=== PATIENT | female | born 1955 | race Caucasian/White ===

== ENCOUNTER → 2017-05-10 | Outpatient (CLI) | payer MEDICARE ==
[2017-05-10 15:18] LABS: Blood Urea Nitrogen 14 mg/dL (7-17); Non-African American GFR(MDRD) >60 (>60 ml/min/1.73 sqM)
--- NOTE | 2017-05-11 07:33 | CT ---
EXAMINATION TYPE: CT abdomen pelvis w con DATE OF EXAM: 05/10/2017 HISTORY: Generalized abdominal pain with gurgling and constipation. CT DLP: 722.00mGycm Automated Exposure Control for Dose Reduction was Utilized. CONTRAST: CT scan of the abdomen and pelvis is performed with IV Contrast, patient injected with 100 mL of Omni paque 300. COMPARISON: None. FINDINGS: Patient has very little intra-abdominal fat making evaluation suboptimal. LUNG BASES: There is minimal linear scarring and/or atelectasis in both bases. LIVER/GB: Gallbladder is contracted in appearance and thus limited in evaluation. PANCREAS: No significant abnormality is seen. SPLEEN: No significant abnormality is seen. ADRENALS: No significant abnormality is seen. KIDNEYS: No significant abnormality is seen. BOWEL: Oral contrast reaches proximal transverse colon. There is no suspicious small or large bowel d ilatation seen. The amount of fecal material is slightly prominent in the transverse colon. UTERUS/ADNEXA: Slightly prominent draining ovarian veins are seen bilaterally near axial image 58 and coronal image 46, a pelvic congestion syndrome cannot be excluded in the appropriate clinical settin g. LYMPH NODES: No greater than 1cm abdominal or pelvic lymph nodes are appreciated. OSSEOUS STRUCTURES: No significant abnormality is seen. OTHER: There is fairly moderate calcified atherosclerotic change of aorta extending into branch vesse ls IMPRESSION: No bowel obstruction is seen. Perhaps mild mid colonic fecal stasis.
== END | disposition home or self-care (01) ==
LOC: RADCTMAIN 14:42
PROVIDERS: ATTEND Internal Medicine
DX: R10.84 Generalized abdominal pain (principal)
CPT/HCPCS: 82565; 84520; 74177; 36415; Q9967

== ENCOUNTER 2018-02-09 20:21 | Emergency (ER) | payer MEDICARE ==
--- NOTE | 2018-02-09 20:33 | ED ---
General Adult HPI - General Chief complaint: Extremity Problem,Nontraumatic Stated complaint: FEVER Time Seen by Provider: 02/09/18 20:32 Source: patient Mode of arrival: ambulatory Limitations: no limitations - History of Present Illness Initial comments: Patient presents with fatigue, rash on legs. Patient states she had the flu, states it lasts approximately 13 days, saw her primary care physician after that time, was told she may have sinusitis, started on Levaquin. Patient states shortly after completing Levaquin she started developing small red spots on her feet and shins. States the rash has been unchanged for the past 3 days. Patient states she still feels fatigued, states she had a fever of 101 earlier today, took Tylenol at 4:30 PM today. Patient afebrile on arrival. Patient states she's had generalized body aches, mild generalized headache. Denies nausea, vomiting, abdominal pain, urinary symptoms, constipation, diarrhea, confusion, vision changes. Patient has ALLERGIES to other antibiotics including penicillin, sulfa. She states she has a history of fibromyalgia, osteoporosis. States she frequently has generalized body aches, fatigue, pains. - Related Data Home Medications Medication Instructions Recorded Confirmed Enalapril [Vasotec] 5 mg PO DAILY 02/07/15 02/09/18 Cholecalciferol (Vitamin D3) 2,000 unit PO DAILY 02/09/18 02/09/18 [Vitamin D3] DULoxetine HCL [Cymbalta] 20 mg PO Q3D 02/09/18 02/09/18 Insulin Aspart (For Pump) [NovoLOG 0.01 unit SQ-PUMP CONTINUOUS 02/09/18 (For Pump)] Meclizine HCl 25 mg PO TID PRN 02/09/18 02/09/18 Allergies Allergy/AdvReac Type Severity Reaction Status Date / Time levofloxacin [From Levaquin] Allergy Rash/Hives Verified 02/09/18 21:15 Penicillins Allergy Unknown Verified 02/09/18 20:35 Sulfa (Sulfonamide Allergy Swelling Verified 02/09/18 20:35 Antibiotics) diphenhydramine HCl AdvReac Itching Verified 02/09/18 20:35 [From Benadryl] morphine AdvReac Itching Verified 02/09/18 20:35 Review of Systems ROS Statement: Those systems with pertinent positive or pertinent negative responses have been documented in the HPI. ROS Other: All systems not noted in ROS Statement are negative. Constitutional: Reports: fever, other (Fatigue). Denies: chills, weakness, weight change, night sweats Eyes: Denies: eye pain, eye discharge, vision change ENT: Reports: other (Denies rhinorrhea.). Denies: ear pain, throat pain, dental pain, hearing loss, congestion Respiratory: Denies: cough, dyspnea, wheezes Cardiovascular: Denies: chest pain, palpitations Endocrine: Reports: fatigue Gastrointestinal: Denies: abdominal pain, nausea, vomiting, diarrhea, constipation Genitourinary: Denies: urgency, dysuria, frequency, hematuria Musculoskeletal: Reports: arthralgia, myalgia. Denies: back pain, joint swelling Skin: Reports: rash Neurological: Reports: headache (Mild, generalized, intermittent.). Denies: weakness, numbness, confusion Past Medical History Past Medical History: Diabetes Mellitus, Fibromyalgia, Hypertension Additional Past Medical History / Comment(s): MS. osteoporosis. History of Any Multi-Drug Resistant Organisms: None Reported Past Surgical History: Appendectomy, Breast Surgery, Section Additional Past Surgical History / Comment(s): left rotator cuff. colonoscopy. Past Psychological History: Anxiety Smoking Status: Former smoker Past Alcohol Use History: None Reported, Occasional Past Drug Use History: None Reported General Exam - General Exam Comments Initial Comments: Sitting up in bed alert. Conversing normally. Calm, pleasant. Well-groomed well-dressed. Does not appear in pain. Not ill appearing. Well-appearing. Limitations: no limitations General appearance: alert, in no apparent distress Head exam: Present: atraumatic, normocephalic Eye exam: Present: normal appearance, PERRL, EOMI. Absent: scleral icterus, conjunctival injection, periorbital swelling, periorbital tenderness ENT exam: Present: normal exam, normal oropharynx, mucous membranes moist, normal external ear exam, other (Oropharynx clear, no vesicles, erythema, petechiae of the oropharynx or buccal mucosa appreciated.) Neck exam: Present: normal inspection, full ROM, other (Final range of motion, no lymphadenopathy, no meningismus.). Absent: tenderness, meningismus, lymphadenopathy Respiratory exam: Present: normal lung sounds bilaterally. Absent: respiratory distress, wheezes, rales Cardiovascular Exam: Present: regular rate, normal rhythm GI/Abdominal exam: Present: soft. Absent: distended, tenderness, guarding, rebound Extremities exam: Present: full ROM, normal capillary refill, other (No edema appreciated. No Tenderness appreciated.). Absent: tenderness, pedal edema, joint swelling Back exam: Present: normal inspection Neurological exam: Present: alert, oriented X3, CN II-XII intact, normal gait, other (Alert and oriented 4. GCS 15. Conversing normally. No focal neuro deficits on exam.) Psychiatric exam: Present: normal affect, normal mood Skin exam: Present: warm, dry, intact, rash, petechiae, other (Mild amount of red petechiae anterior feet and shins bilaterally.) Course Vital Signs 02/09/18 02/09/18 02/10/18 20:24 22:51 00:29 Temperature 98.6 F 99.6 F Pulse Rate 77 89 91 Respiratory 16 18 18 Rate Blood Pressure 190/80 191/84 197/82 O2 Sat by Pulse 100 98 94 L Oximetry Medical Decision Making - Medical Decision Making Blood pressure mildly elevated, otherwise vital signs all within normal limits, patient is afebrile, 4.5 hr since pt's last antipyretic. Patient well- appearing on exam. Blood cultures drawn given patient's reported fevers. White blood cell count within normal range CT head and sinuses are normal. Grayson negative. LFTs mildly elevated, likely secondary to viral syndrome. She states she had a confirmed test positive for influenza recently. Supportive care discussed. 00:57 US negative Patient well-appearing on exam. Reexamined, remains afebrile in the ER, repeat temperature 97.1, patient was not given any antipyretics in the ER. Patient's symptoms likely secondary to viral syndrome, symptoms may be exacerbated by pt' s fibromyalgia, at this time no signs of severe infection requiring antibiotics , admission to the hospital, or further workup. Headache resolved at this time. Discussed with pt doubtful meningitis at this time, she agrees with no LP at this time, states she has had that before and doesn't want it. He agrees to monitor symptoms closely at home. Use Motrin and Tylenol for fevers. Return to ER if new or worsening symptoms including uncontrolled fevers, headache, confusion, neck pain, increased rash. At this time and do not feel rash is consistent with that of meningococcemia. Rash may be a drug reaction, rash has not worsened in the past 3 days, patient to monitor closely. Follow primary care physician one to 2 days for reevaluation of symptoms and rash. Informed that this may be related to her recent influenza and continuation of symptoms, may also be early development of a new process, needs to be watched closely by her primary care physician. At this time cause of her rash is unknown. - Lab Data Result diagrams: 02/09/18 21:15 02/09/18 21:15 Lab Results 02/09/18 02/09/18 02/09/18 Range/Units 21:15 21:15 21:15 WBC 5.8 (3.8-10.6) k/uL RBC 4.33 (3.80-5.40) m/uL Hgb 13.0 (11.4-16.0) gm/dL Hct 38.8 (34.0-46.0) % MCV 89.5 (80.0-100.0) fL MCH 30.0 (25.0-35.0) pg MCHC 33.5 (31.0-37.0) g/dL RDW 13.3 (11.5-15.5) % Plt Count 244 (150-450) k/uL Neutrophils % (Manual) 16 % Lymphocytes % (Manual) 70 % Monocytes % (Manual) 11 % Eosinophils % (Manual) 2 % Basophils % (Manual) 1 % Neutrophils # (Manual) 0.93 L (1.3-7.7) k/uL Lymphocytes # (Manual) 4.06 (1.0-4.8) k/uL Monocytes # (Manual) 0.64 (0-1.0) k/uL Eosinophils # (Manual) 0.12 (0-0.7) k/uL Basophils # (Manual) 0.06 (0-0.2) k/uL Nucleated RBCs 0 (0-0) /100 WBC Manual Slide Review Performed RBC Morphology Normal PT (9.0-12.0) sec INR (<1.2) APTT (22.0-30.0) sec Sodium 140 (137-145) mmol/L Potassium 3.7 (3.5-5.1) mmol/L Chloride 98 (98-107) mmol/L Carbon Dioxide 29 (22-30) mmol/L Anion Gap 13 mmol/L BUN 8 (7-17) mg/dL Creatinine 0.50 L (0.52-1.04) mg/dL Est GFR (CKD-EPI)AfAm >90 (>60 ml/min/1.73 sqM) Est GFR (CKD-EPI)NonAf >90 (>60 ml/min/1.73 sqM) Glucose 93 (74-99) mg/dL Plasma Lactic Acid Bert 0.7 (0.7-2.0) mmol/L Calcium 9.2 (8.4-10.2) mg/dL Magnesium 2.1 (1.6-2.3) mg/dL Total Bilirubin 0.4 (0.2-1.3) mg/dL AST 124 H (14-36) U/L ALT 122 H (9-52) U/L Alkaline Phosphatase 149 H (38-126) U/L Total Protein 7.8 (6.3-8.2) g/dL Albumin 4.2 (3.5-5.0) g/dL Urine Color Urine Appearance (Clear) Urine pH (5.0-8.0) Ur Specific Wilmot (1.001-1.035) Urine Protein (Negative) Urine Glucose (UA) (Negative) Urine Ketones (Negative) Urine Blood (Negative) Urine Nitrite (Negative) Urine Bilirubin (Negative) Urine Urobilinogen (<2.0) mg/dL Ur Leukocyte Esterase (Negative) Heterophile Antibody (Negative) 02/09/18 02/09/18 02/09/18 Range/Units 21:15 21:15 21:15 WBC (3.8-10.6) k/uL RBC (3.80-5.40) m/uL Hgb (11.4-16.0) gm/dL Hct (34.0-46.0) % MCV (80.0-100.0) fL MCH (25.0-35.0) pg MCHC (31.0-37.0) g/dL RDW (11.5-15.5) % Plt Count (150-450) k/uL Neutrophils % (Manual) % Lymphocytes % (Manual) % Monocytes % (Manual) % Eosinophils % (Manual) % Basophils % (Manual) % Neutrophils # (Manual) (1.3-7.7) k/uL Lymphocytes # (Manual) (1.0-4.8) k/uL Monocytes # (Manual) (0-1.0) k/uL Eosinophils # (Manual) (0-0.7) k/uL Basophils # (Manual) (0-0.2) k/uL Nucleated RBCs (0-0) /100 WBC Manual Slide Review RBC Morphology PT 10.4 (9.0-12.0) sec INR 1.1 (<1.2) APTT 26.0 (22.0-30.0) sec Sodium (137-145) mmol/L Potassium (3.5-5.1) mmol/L Chloride (98-107) mmol/L Carbon Dioxide (22-30) mmol/L Anion Gap mmol/L BUN (7-17) mg/dL Creatinine (0.52-1.04) mg/dL Est GFR (CKD-EPI)AfAm (>60 ml/min/1.73 sqM) Est GFR (CKD-EPI)NonAf (>60 ml/min/1.73 sqM) Glucose (74-99) mg/dL Plasma Lactic Acid Bert (0.7-2.0) mmol/L Calcium (8.4-10.2) mg/dL Magnesium (1.6-2.3) mg/dL Total Bilirubin (0.2-1.3) mg/dL AST (14-36) U/L ALT (9-52) U/L Alkaline Phosphatase (38-126) U/L Total Protein (6.3-8.2) g/dL Albumin (3.5-5.0) g/dL Urine Color Light Yellow Urine Appearance Clear (Clear) Urine pH 7.0 (5.0-8.0) Ur Specific Wilmot 1.002 (1.001-1.035) Urine Protein Negative (Negative) Urine Glucose (UA) Negative (Negative) Urine Ketones Negative (Negative) Urine Blood Negative (Negative) Urine Nitrite Negative (Negative) Urine Bilirubin Negative (Negative) Urine Urobilinogen <2.0 (<2.0) mg/dL Ur Leukocyte Esterase Negative (Negative) Heterophile Antibody Negative (Negative) Disposition Clinical Impression: Fatigue, Rash and nonspecific skin eruption Disposition: HOME SELF-CARE Condition: Good Instructions: Acute Rash (ED), Fatigue (ED) Additional Instructions: Follow-up with your primary care physician one to 2 days for reevaluation. Return to ER for new or worsening symptoms. Is patient prescribed a controlled substance at d/c from ED?: No Referrals: Ghassan Mccabe MD [Primary Care Provider] - 1-2 days
[2018-02-09] MEDS: SODIUM CHLORIDE 0.9% 500 ML IV SCH (21:23)
[2018-02-09 21:32] LABS: Appearance,Urine Clear (Clear); Bilirubin,Urine Negative (Negative); Blood,Urine Negative (Negative); Color,Urine Light Yellow; Glucose,Urine (UA) Negative (Negative); HCT 38.8 % (34.0-46.0); Ketones,Urine Negative (Negative); Leukocyte Esterase,Urine Negative (Negative); MCHC 33.5 g/dL (31.0-37.0); MCV 89.5 fL (80.0-100.0); Mean Platelet Volume 7.4; Nitrite,Urine Negative (Negative); Platelet Count 244 k/uL (150-450); Protein,Urine Negative (Negative); RBC 4.33 m/uL (3.80-5.40); RDW 13.3 % (11.5-15.5); Specific Gravity,Urine 1.002 (1.001-1.035); Urobilinogen,Urine <2.0 mg/dL (<2.0); WBC 5.8 k/uL (3.8-10.6)
[2018-02-09 21:40] LABS: INR 1.1 (<1.2); Prothrombin Time 10.4 sec (9.0-12.0)
[2018-02-09 21:41] LABS: ALT 122 U/L (9-52); AST 124 U/L (14-36); Albumin 4.2 g/dL (3.5-5.0); Alkaline Phosphatase 149 U/L (38-126); Anion Gap 13 mmol/L; Blood Urea Nitrogen 8 mg/dL (7-17); Calcium 9.2 mg/dL (8.4-10.2); Carbon Dioxide 29 mmol/L (22-30); Chloride 98 mmol/L (98-107); Glucose 93 mg/dL (74-99); Magnesium 2.1 mg/dL (1.6-2.3); Potassium 3.7 mmol/L (3.5-5.1); Sodium 140 mmol/L (137-145); Total Bilirubin 0.4 mg/dL (0.2-1.3); Total Protein 7.8 g/dL (6.3-8.2)
[2018-02-09 22:17] LABS: Basophils # (M) 0.06 k/uL (0-0.2); Eosinophils # (M) 0.12 k/uL (0-0.7); Lymphocytes # (M) 4.06 k/uL (1.0-4.8); Monocytes # (M) 0.64 k/uL (0-1.0); Neutrophils # (M) 0.93 k/uL (1.3-7.7); Neutrophils % (M) 16 %; Nucleated Red Blood Cells 0 /100 WBC (0-0); Total Cells Counted 100
--- NOTE | 2018-02-09 22:43 | CT ---
EXAM: CT Head Without Intravenous Contrast CLINICAL HISTORY: Reason: Pain TECHNIQUE: Axial computed tomography images of the head/brain without intravenous contrast. CTDI is 60.3 mGy and DLP is 967.9 mGy-cm. This CT exam was performed using one or more of the following dose reduction techniques: automated exposure control, adjustment of the mA and/or kV according to patient size, and/or use of iterative reconstruction technique. COMPARISON: No relevant prior studies available. FINDINGS: Brain: Unremarkable. No hemorrhage. No significant white matter disease. No edema. Ventricles: Unremarkable. No ventriculomegaly. Bones/joints: Unremarkable. No acute fracture. Soft tissues: Unremarkable. Sinuses: Unremarkable as visualized. No acute sinusitis. Mastoid air cells: Unremarkable as visualized. No mastoid effusion. IMPRESSION: Normal head/brain CT.
--- NOTE | 2018-02-09 22:45 | CT ---
EXAM: CT Maxillofacial Sinuses Without Intravenous Contrast CLINICAL HISTORY: Reason: Pain TECHNIQUE: Computed tomography images of the maxillofacial sinuses without intravenous contrast. CTDI is 30.6 mGy and DLP is 526.4 mGy-cm. This CT exam was performed using one or more of the following dose reduction techniques: automated exposure control, adjustment of the mA and/or kV according to patient size, and/or use of iterative reconstruction technique. COMPARISON: No relevant prior studies available. FINDINGS: Maxillary sinuses: Unremarkable. No air-fluid levels. Sphenoid sinuses: Unremarkable. No air-fluid levels. Frontal sinuses: Unremarkable. No air-fluid levels. Ethmoid air cells: Unremarkable. No air-fluid levels. Nasal cavity/septum: No acute findings. Bones/joints: No acute fracture. Soft tissues: Unremarkable. IMPRESSION: Normal sinus CT.
[2018-02-09 22:52] VITALS: RESP 18
[2018-02-10 00:30] VITALS: BP 197/82; PULSE 91; TEMP 99.6
--- NOTE | 2018-02-10 00:54 | US ---
EXAM: US Abdomen Complete CLINICAL HISTORY: Pain TECHNIQUE: Real-time ultrasound of the abdomen (complete) with image documentation. COMPARISON: No relevant prior studies available. FINDINGS: Liver: Unremarkable measuring 14.9 cm no mass. No intrahepatic bile duct dilation. Gallbladder: Unremarkable. No gallstones. Gallbladder wall measures 3 mm. No pericholecystic fluid. Common bile duct: Unremarkable as visualized measuring 2 mm. No stones. No dilation. Pancreas: Unremarkable as visualized. Kidneys: Unremarkable. Right kidney measures 9.8 x 2.8 x 4.2 cm. The left kidney measures 10.7 x 3.8 x 2.6 cm. No stones. No solid mass. No hydronephrosis. Spleen: Unremarkable. No splenomegaly. Aorta: Unremarkable. No aneurysm. Inferior vena cava: Unremarkable. IMPRESSION: Normal abdominal ultrasound.
== END 2018-02-10 01:17 | disposition home or self-care (01) ==
LOC: EC 20:21
DX: R21 Rash and other nonspecific skin eruption (principal); R53.83 Other fatigue; I10 Essential (primary) hypertension; R79.89 Other specified abnormal findings of blood chemistry; R23.3 Spontaneous ecchymoses; R51 Headache; R52 Pain, unspecified; E11.9 Type 2 diabetes mellitus without complications; F41.9 Anxiety disorder, unspecified; Z87.891 Personal history of nicotine dependence; Z79.4 Long term (current) use of insulin; Z79.899 Other long term (current) drug therapy; Z88.0 Allergy status to penicillin; Z88.1 Allergy status to other antibiotic agents; Z88.2 Allergy status to sulfonamides; Z88.5 Allergy status to narcotic agent; Z88.8 Allergy status to other drugs, medicaments and biological substances
CPT/HCPCS: 36415; 70450; 70486; 76700; 80053; 81003; 83605; 83735; 85025; 85610; 85730; 86308; 87040; 87086; 99284

== ENCOUNTER 2019-06-17 14:59 | Emergency (ER) | payer MEDICARE, OTHER ==
[2019-06-17 15:14] VITALS: TEMP 97.8
[2019-06-17] MEDS ORDERED: MORPHINE SULFATE 4 MG/ML SYRINGE IVP STA (15:26)
[2019-06-17] MEDS ORDERED: ONDANSETRON 4 MG/2 ML VIAL IVP STA (15:26)
--- NOTE | 2019-06-17 15:51 | ED ---
Recheck HPI - General Source: patient, family Mode of arrival: wheelchair Limitations: no limitations <Cassandra Aguayo - Last Filed: 06/17/19 16:55> <Richard Pickens - Last Filed: 06/17/19 17:30> - General Chief Complaint: Recheck/Abnormal Lab/Rx Stated Complaint: post op complications Time Seen by Provider: 06/17/19 15:20 - History of Present Illness Initial Comments: 64yo female presenting for right groin pain x 6 hours. Patient states that she had a recent lower extremity procedure with stent placement due to peripheral vascular disease performed at [facility] by Dr. Mitchell. Patient states that she had a complication of pseudoaneursym, and subsequent complication of a deep venous thrombosis of the right groin. Patient states she is on throughout for treatment. Patient states she had not had any significant pain and has had some swelling since the diagnosis however around 9 AM she developed severe pain in the right groin. Patient states she tried to write out the pain however became became so severe she decided to presents to emergency department for further evaluation. Upon evaluation patient appears uncomfortable. She is grabbing her groin. Patient states that the pain is very sharp in the right groin and radiates towards the right lower back. Patient has a numbness tingling or loss sensation of the right lower extremity denies any coolness or pallor of the extremity. Patient states she has been wearing a compression stocking as instructed. Patient denies any chest pain she denies any shortness of breath. She denies any nausea vomiting epigastric pain. Patient denies abdominal pain remaining review of system negative. Upon arrival patient appears uncomfortable vital signs stable. Patient states that her surgeon was Dr. Mitchell. (Cassandra Aguayo) - Related Data Home Medications Medication Instructions Recorded Confirmed Enalapril [Vasotec] 5 mg PO DAILY 02/07/15 02/09/18 Cholecalciferol (Vitamin D3) 2,000 unit PO DAILY 02/09/18 02/09/18 [Vitamin D3] DULoxetine HCL [Cymbalta] 20 mg PO Q3D 02/09/18 02/09/18 Insulin Aspart (For Pump) [NovoLOG 0.01 unit SQ-PUMP CONTINUOUS 02/09/18 02/09/18 (For Pump)] Meclizine HCl 25 mg PO TID PRN 02/09/18 02/09/18 Allergies Allergy/AdvReac Type Severity Reaction Status Date / Time levofloxacin [From Levaquin] Allergy Rash/Hives Verified 06/17/19 15:08 Penicillins Allergy Unknown Verified 06/17/19 15:08 Sulfa (Sulfonamide Allergy Swelling Verified 06/17/19 15:08 Antibiotics) diphenhydramine HCl AdvReac Itching Verified 06/17/19 15:08 [From Benadryl] morphine AdvReac Itching Verified 06/17/19 15:08 Review of Systems ROS Other: All systems not noted in ROS Statement are negative. <Cassandra Aguayo - Last Filed: 06/17/19 16:55> ROS Other: All systems not noted in ROS Statement are negative. <Richard Pickens - Last Filed: 06/17/19 17:30> ROS Statement: Those systems with pertinent positive or pertinent negative responses have been documented in the HPI. Past Medical History Past Medical History: Diabetes Mellitus, Fibromyalgia, Hypertension Additional Past Medical History / Comment(s): MS. osteoporosis. History of Any Multi-Drug Resistant Organisms: None Reported Past Surgical History: Appendectomy, Breast Surgery, Section Additional Past Surgical History / Comment(s): left rotator cuff. colonoscopy., angioplasty at [facility] in May. Past Psychological History: Anxiety Smoking Status: Former smoker Past Alcohol Use History: None Reported, Occasional Past Drug Use History: None Reported <Cassandra Aguayo - Last Filed: 06/17/19 16:55> General Exam Limitations: no limitations <Cassandra Aguayo - Last Filed: 06/17/19 16:55> - General Exam Comments Initial Comments: General: The patient is awake and alert, appear uncomfortable. Eye: +3 mm pupils are equal, round and reactive to light, extra-ocular movements are intact. No nystagmus. There is normal conjunctiva bilaterally. No signs of icterus. Ears, nose, mouth and throat: There are moist mucous membranes and no oral lesions. Neck: The neck is supple, there is no tenderness or JVD. Cardiovascular: There is a regular rate and rhythm. No murmur, rub or gallop is appreciated. Respiratory: Lungs are clear to auscultation, respirations are non-labored, breath sounds are equal. No wheezes, stridor, rales, or rhonchi. Gastrointestinal: Soft, non-distended, non-tender abdomen without masses or organomegaly noted. There is no rebound or guarding present. Musculoskeletal: Normal ROM, no tenderness. Strength 5/5. Sensation intact. Strong DP pulses equal b/l identified with doppler. Neurological: A&O x 3. CN II-XII intact grossly, There are no obvious motor or sensory deficits. Coordination appears grossly intact. Speech is normal. Skin: Skin is warm and dry and no rashes. Surgical site, ecchymosis, appears old. No drainage or warmth/redness at the incision site. No large mass appreciated. Pain to palpation of the right groin. Psychiatric: Cooperative, appropriate mood & affect, normal judgment. (Cassandra Aguayo) Course <Cassandra Aguayo - Last Filed: 06/17/19 16:55> Vital Signs 06/17/19 06/17/19 15:08 17:02 Temperature 97.8 F Pulse Rate 88 98 Respiratory 20 18 Rate Blood Pressure 199/62 174/64 O2 Sat by Pulse 100 98 Oximetry - Reevaluation(s) Reevaluation #1: Concern for aneursym or complication of recent surgery, contacted CT and recommended not waiting for laboratory studies as possible emergent diagnosis. Did not want delays. CT aware will take patient next. (Cassandra Aguayo) Medical Decision Making - Lab Data Result diagrams: 06/17/19 15:30 06/17/19 15:30 <Cassandra Aguayo - Last Filed: 06/17/19 16:55> - Lab Data Result diagrams: 06/17/19 15:30 06/17/19 15:30 <Richard Pickens - Last Filed: 06/17/19 17:30> - Medical Decision Making 63-year-old female presenting for severe right groin pain. Patient recently had a stent placed for peripheral artery disease had a competition pseudoaneurysm and subsequent blood clot. Patient states she did not have much pain following the procedures is currently on some water. She states she is compliant. Pat ient had pain beginning 6 hours prior to arrival. Patient appears very uncomfortable arrival in the emergency department. Stat CT was obtained of the abdomen with runoff of the right lower extremity which revealed a large hematoma. Vascular was consult erythematous provider Dr. Pickens who did evaluate the patient in person. Vascular medical reception recommended immediate transfer. Transfer immediately initiated after discussing findings with patient. Patient continues to appear stable. Patient denies any new complaints. Comfortable after a single dose of IV medications. On telemetry. Patient agreeable with transfer. EMS was contacted. Dr. Perdomo accepted transfer ER to ER. Disc will be sent, no further orders. They state they will evaluate patient in their ER. (Cassandra Aguayo) Patient was evaluated by myself, Dr. Pickens. Patient complains of severe discomfort right groin/mL region. There is some swelling present. Distally the extremity is intact. Pulses present. This was confirmed with Doppler. CT done. Reports and images reviewed. Case was discussed with Dr. Salgado who does recommend transfer. Patient previously had procedures done at [facility]. Patient again reevaluated and is more comfortable. Patient and family updated. (Richard Pickens) - Lab Data Lab Results 06/17/19 06/17/19 06/17/19 Range/Units 15:30 15:30 15:30 WBC 8.2 (3.8-10.6) k/uL RBC 3.21 L (3.80-5.40) m/uL Hgb 10.0 L (11.4-16.0) gm/dL Hct 30.0 L (34.0-46.0) % MCV 93.5 (80.0-100.0) fL MCH 31.1 (25.0-35.0) pg MCHC 33.2 (31.0-37.0) g/dL RDW 14.0 (11.5-15.5) % Plt Count 314 (150-450) k/uL Neutrophils % 85 % Lymphocytes % 9 % Monocytes % 4 % Eosinophils % 1 % Basophils % 0 % Neutrophils # 7.0 (1.3-7.7) k/uL Lymphocytes # 0.7 L (1.0-4.8) k/uL Monocytes # 0.4 (0-1.0) k/uL Eosinophils # 0.1 (0-0.7) k/uL Basophils # 0.0 (0-0.2) k/uL PT 12.1 H (9.0-12.0) sec INR 1.2 H (<1.2) APTT 28.3 (22.0-30.0) sec Sodium 133 L (137-145) mmol/L Potassium 4.3 (3.5-5.1) mmol/L Chloride 97 L (98-107) mmol/L Carbon Dioxide 24 (22-30) mmol/L Anion Gap 12 mmol/L BUN 12 (7-17) mg/dL Creatinine 0.44 L (0.52-1.04) mg/dL Est GFR (CKD-EPI)AfAm >90 (>60 ml/min/1.73 sqM) Est GFR (CKD-EPI)NonAf >90 (>60 ml/min/1.73 sqM) Glucose 228 H (74-99) mg/dL Plasma Lactic Acid Bert (0.7-2.0) mmol/L Calcium 9.1 (8.4-10.2) mg/dL Total Bilirubin 0.7 (0.2-1.3) mg/dL AST 31 (14-36) U/L ALT 22 (9-52) U/L Alkaline Phosphatase 58 (38-126) U/L Total Protein 7.3 (6.3-8.2) g/dL Albumin 4.1 (3.5-5.0) g/dL 06/17/19 Range/Units 15:30 WBC (3.8-10.6) k/uL RBC (3.80-5.40) m/uL Hgb (11.4-16.0) gm/dL Hct (34.0-46.0) % MCV (80.0-100.0) fL MCH (25.0-35.0) pg MCHC (31.0-37.0) g/dL RDW (11.5-15.5) % Plt Count (150-450) k/uL Neutrophils % % Lymphocytes % % Monocytes % % Eosinophils % % Basophils % % Neutrophils # (1.3-7.7) k/uL Lymphocytes # (1.0-4.8) k/uL Monocytes # (0-1.0) k/uL Eosinophils # (0-0.7) k/uL Basophils # (0-0.2) k/uL PT (9.0-12.0) sec INR (<1.2) APTT (22.0-30.0) sec Sodium (137-145) mmol/L Potassium (3.5-5.1) mmol/L Chloride (98-107) mmol/L Carbon Dioxide (22-30) mmol/L Anion Gap mmol/L BUN (7-17) mg/dL Creatinine (0.52-1.04) mg/dL Est GFR (CKD-EPI)AfAm (>60 ml/min/1.73 sqM) Est GFR (CKD-EPI)NonAf (>60 ml/min/1.73 sqM) Glucose (74-99) mg/dL Plasma Lactic Acid Bert 1.5 (0.7-2.0) mmol/L Calcium (8.4-10.2) mg/dL Total Bilirubin (0.2-1.3) mg/dL AST (14-36) U/L ALT (9-52) U/L Alkaline Phosphatase (38-126) U/L Total Protein (6.3-8.2) g/dL Albumin (3.5-5.0) g/dL Disposition Is patient prescribed a controlled substance at d/c from ED?: No Time of Disposition: 17:00 - Out of Hospital Transfer - Req. Specs Out of Hospital Transfer - Requested Specifics: Other Emergency Center (Dr. Lee- Mar[facility] Crenshaw) <Cassandra Aguayo - Last Filed: 06/17/19 16:55> <Richard Pickens - Last Filed: 06/17/19 17:30> Clinical Impression: Groin hematoma, Post surgical complication, Right groin pain, Anemia Disposition: OTHER INSTITUTION NOT DEFINED Condition: Stable Referrals: Julienne Sullivan MD [Primary Care Provider] - 1-2 days
[2019-06-17 15:58] LABS: ALT 22 U/L (9-52); AST 31 U/L (14-36); African American GFR (CKD) >90 (>60 ml/min/1.73 sqM); Albumin 4.1 g/dL (3.5-5.0); Alkaline Phosphatase 58 U/L (38-126); Anion Gap 12 mmol/L; Blood Urea Nitrogen 12 mg/dL (7-17); Calcium 9.1 mg/dL (8.4-10.2); Carbon Dioxide 24 mmol/L (22-30); Chloride 97 mmol/L (98-107); Glucose 228 mg/dL (74-99); Potassium 4.3 mmol/L (3.5-5.1); Sodium 133 mmol/L (137-145); Total Bilirubin 0.7 mg/dL (0.2-1.3); Total Protein 7.3 g/dL (6.3-8.2)
[2019-06-17 16:03] LABS: INR 1.2 (<1.2); Partial Thromboplastin Time 28.3 sec (22.0-30.0); Prothrombin Time 12.1 sec (9.0-12.0)
[2019-06-17 16:09] LABS: Basophils % (A) 0 %; Eosinophils # (A) 0.1 k/uL (0-0.7); Eosinophils % (A) 1 %; Lymphocytes # (A) 0.7 k/uL (1.0-4.8); Lymphocytes % (A) 9 %; MCH 31.1 pg (25.0-35.0); MCHC 33.2 g/dL (31.0-37.0); MCV 93.5 fL (80.0-100.0); Mean Platelet Volume 7.5; Monocytes # (A) 0.4 k/uL (0-1.0); Monocytes % (A) 4 %; Neutrophils % (A) 85 %; Platelet Count 314 k/uL (150-450); RBC 3.21 m/uL (3.80-5.40); WBC 8.2 k/uL (3.8-10.6)
--- NOTE | 2019-06-17 16:41 | CT ---
EXAMINATION TYPE: CT angio abd aorta w/Runoff DATE OF EXAM: 06/17/2019 HISTORY: Left leg stent, Right groin pain and swelling. Abdominal and pelvic pain. CT DLP: 1337.4mGycm Automated Exposure Control for Dose Reduction was Utilized. CONTRAST: CTA scan of the abdomen and pelvis with lower extremity runoff performed without oral and without and with IV Contrast, patient injected with 100 mL of Isovue 370. COMPARISON: CT abdomen and pelvis May 10, 2017 FINDINGS: Patient has virtually no intra-abdominal fat making evaluation suboptimal. VASCULAR: Mild to moderate calcified plaque in the abdominal aorta. Patent celiac artery, SMA, bilate ral single renal arteries, and DELBERT without significant stenosis. Mild to minimal plaque in the common iliac arteries bilaterally. Patent internal iliac arteries with mild calcified plaque. No significan t stenosis is present bilaterally. In the right groin there is heterogeneous hyperdense fluid collection measuring 4.3 x 2.9 cm axial im age 104 measuring approximate 7 to 8 cm craniocaudal dimension coronal image 16. Reflect moderate to large sized groin hematoma. Some overlying horizontal skin gordon are seen. There is smaller subcuta neous hematoma anterior to the larger hematoma maximum of 69 measuring 3.2 x 1.5 cm. There is some fo arvin calcified plaque in the common femoral artery. There is satisfactory branching into superficial a nd deep femoral arteries. There is moderate to severe plaque along course of the superficial femoral artery into the popliteal artery without definitive significant stenosis. There is good visualization of the bifurcation and trifurcation with good three-vessel flow midline level and good two-vessel fl ow distal leg/ankle level. There is mild calcified plaque left common femoral artery. There is good visualization of bifurcation . There is stent graft in the left superficial femoral artery which is patent beginning on axial imag e 144 terminating 205 superficial popliteal artery level. No significant stenosis is present. There i s good bifurcation and trifurcation with three-vessel flow in the mid leg and good two-vessel flow in the distal leg. LUNG BASES: No significant abnormality is appreciated. LIVER/GB: No significant abnormality is appreciated. PANCREAS: No significant abnormality is seen. SPLEEN: No significant abnormality is seen. ADRENALS: No significant abnormality is seen. KIDNEYS: No significant abnormality is seen. BOWEL: No significant abnormality is seen. UTERUS/ADNEXA: Anteverted uterus. LYMPH NODES: No greater than 1cm abdominal or pelvic lymph nodes are appreciated. OSSEOUS STRUCTURES: No significant abnormality is seen. OTHER: No significant additional abnormality is seen. Extremities: Symmetric moderate medial tibiofemoral compartment joint space loss. Moderate soft tissu e swelling over the lateral and medial malleoli are identified. Asymmetric mild to moderate right low er extremity subcutaneous edema most prominent over the medial leg. Asymmetric enlargement of right l ower extremity versus left lower extremity. IMPRESSION: 1. Patent stent graft left superficial femoral artery extending into proximal popliteal artery. No si gnificant stenosis is identified in the abdomen and pelvis or bilateral lower extremities. There is m oderate to large size right groin hematoma related to recent right groin arterial access.
[2019-06-17 17:06] VITALS: BP 174/64; PULSE 98; RESP 18
[2019-06-17] MEDS ORDERED: LORazepam 2 MG/ML INJ IV STA (17:19)
== END 2019-06-17 17:25 | disposition other institution (70) ==
LOC: EC 14:59
DX: L76.32 Postprocedural hematoma of skin and subcutaneous tissue following other procedure (principal); S30.1XXA Contusion of abdominal wall, initial encounter; D64.9 Anemia, unspecified; E11.51 Type 2 diabetes mellitus with diabetic peripheral angiopathy without gangrene; I10 Essential (primary) hypertension; F41.9 Anxiety disorder, unspecified; Z79.4 Long term (current) use of insulin; Z79.899 Other long term (current) drug therapy; Z88.0 Allergy status to penicillin; Z88.1 Allergy status to other antibiotic agents; Z88.2 Allergy status to sulfonamides; Z88.5 Allergy status to narcotic agent; Z88.8 Allergy status to other drugs, medicaments and biological substances; Z87.891 Personal history of nicotine dependence
CPT/HCPCS: 36415; 80053; 83605; 85025; 85610; 85730; 87040; 75635; 99284; 96374; 96375 ×2; J2060; J2270; J2405; Q9967

== ENCOUNTER → 2019-07-11 | Outpatient (CLI) | payer MEDICARE, OTHER | END | disposition home or self-care (01) | LOC: LABWHC1 11:20 | PROVIDERS: ATTEND Nurse Practitioner Family | DX: J06.9 Acute upper respiratory infection, unspecified (principal) | CPT/HCPCS: 87502 ==

== ENCOUNTER 2022-02-22 10:16 | Emergency (ER) | payer MEDICARE, OTHER ==
[2022-02-22 10:25] VITALS: RESP 18; TEMP 97.9
--- NOTE | 2022-02-22 11:03 | ED ---
URI HPI - General Chief Complaint: Upper Respiratory Infection Stated Complaint: Covid+/infusion Time Seen by Provider: 02/22/22 10:30 Source: patient Mode of arrival: ambulatory Limitations: no limitations - History of Present Illness Initial Comments: Patient is a 66-year-old female who presents with COVID-19 symptoms seeking antibiotic infusion. Patient states her symptoms started on 02/18. Patient endorses general malaise, earache, and sore throat. Denies chest pain shortness, breath, and other concerns. Patient did test positive COVID-19 with home test on 02/19. - Related Data Home Medications Medication Instructions Recorded Confirmed Enalapril [Vasotec] 5 mg PO DAILY 02/07/15 02/09/18 Cholecalciferol (Vitamin D3) 2,000 unit PO DAILY 02/09/18 02/09/18 [Vitamin D3] DULoxetine HCL [Cymbalta] 20 mg PO Q3D 02/09/18 02/09/18 Insulin Aspart (For Pump) [NovoLOG 0.01 unit SQ-PUMP CONTINUOUS 02/09/18 02/09/18 (For Pump)] Meclizine HCl 25 mg PO TID PRN 02/09/18 02/09/18 Allergies Allergy/AdvReac Type Severity Reaction Status Date / Time levofloxacin [From Levaquin] Allergy Rash/Hives Verified 02/22/22 10:25 Penicillins Allergy Unknown Verified 02/22/22 10:25 Sulfa (Sulfonamide Allergy Swelling Verified 02/22/22 10:25 Antibiotics) diphenhydramine HCl AdvReac Itching Verified 02/22/22 10:25 [From Benadryl] morphine AdvReac Itching Verified 02/22/22 10:25 Review of Systems ROS Statement: Those systems with pertinent positive or pertinent negative responses have been documented in the HPI. ROS Other: All systems not noted in ROS Statement are negative. Past Medical History Past Medical History: Diabetes Mellitus, Fibromyalgia, Hypertension Additional Past Medical History / Comment(s): MS. osteoporosis. History of Any Multi-Drug Resistant Organisms: None Reported Past Surgical History: Appendectomy, Breast Surgery, Section Additional Past Surgical History / Comment(s): left rotator cuff. colonoscopy., angioplasty at [facility] in May. Past Psychological History: Anxiety Past Alcohol Use History: None Reported, Occasional Past Drug Use History: None Reported General Exam Limitations: no limitations General appearance: alert, in no apparent distress Head exam: Present: atraumatic, normocephalic, normal inspection Eye exam: Present: normal appearance, PERRL, EOMI. Absent: scleral icterus, conjunctival injection, periorbital swelling ENT exam: Present: normal exam, normal oropharynx, mucous membranes moist, TM's normal bilaterally Neck exam: Present: normal inspection Respiratory exam: Present: normal lung sounds bilaterally. Absent: respiratory distress, wheezes, rales, rhonchi, stridor Cardiovascular Exam: Present: regular rate, normal rhythm, normal heart sounds. Absent: systolic murmur, diastolic murmur, rubs, gallop, clicks GI/Abdominal exam: Present: soft, normal bowel sounds. Absent: distended, tenderness, guarding, rebound, rigid Neurological exam: Present: alert, oriented X3, CN II-XII intact Skin exam: Present: warm, dry, intact, normal color. Absent: rash Course Vital Signs 02/22/22 02/22/22 10:19 13:08 Temperature 97.9 F Pulse Rate 88 78 Respiratory 18 18 Rate Blood Pressure 147/61 124/69 O2 Sat by Pulse 100 98 Oximetry Medical Decision Making - Medical Decision Making This is a 66-year-old female with recent positive COVID-19 tests who presents with upper respiratory symptoms. Thorough history and examination were performed. Patient is well-appearing and in no apparent distress. No chest pain or shortness of breath. She is seeking antibody treatment. She meets criteria for antibiotic treatment. Covid-19 is detected. Patient given antibody treatment. She tolerated it well with no reaction. She will be discharged with quarantine instructions. She'll follow-up with primary care provider in one to 2 days. Return parameters discussed. Dr. Bragg is my attending. - Lab Data Lab Results 02/22/22 Range/Units 10:35 Coronavirus (PCR) Detected A (Not Detectd) Disposition Clinical Impression: COVID-19 Disposition: HOME SELF-CARE Condition: Good Instructions (If sedation given, give patient instructions): Coronavirus Disease 2019 (COVID-19) Additional Instructions: Please quarantine at home for 5 days. Follow-up with primary care provider in one to 2 days. Return to the emergency department if you experience new, concerning, or worsening symptoms. Is patient prescribed a controlled substance at d/c from ED?: No Referrals: Nohemi Boateng MD [Primary Care Provider] - 1-2 days Time of Disposition: 11:58
[2022-02-22] MEDS ORDERED: BEBTELOVIMAB (EUA) 175 MG/2 ML VIAL IV ONE (12:00)
[2022-02-22 13:09] VITALS: BP 124/69; PULSE 78
== END 2022-02-22 13:09 | disposition home or self-care (01) ==
LOC: EC 10:16
DX: U07.1 COVID-19 (principal); E11.9 Type 2 diabetes mellitus without complications; I10 Essential (primary) hypertension; M79.7 Fibromyalgia; F41.9 Anxiety disorder, unspecified; Z79.4 Long term (current) use of insulin; Z79.899 Other long term (current) drug therapy
CPT/HCPCS: 87635; 99283

== ENCOUNTER 2022-05-24 10:37 | Emergency (ER) | payer MEDICARE, OTHER ==
[2022-05-24 11:00] VITALS: TEMP 98.2
[2022-05-24] MEDS ORDERED: SODIUM CHLORIDE 0.9% 500 ML 500 ML IV STA (12:15)
--- NOTE | 2022-05-24 12:15 | ED ---
General Adult HPI - General Chief complaint: Arrhythmia/Palpitations Stated complaint: AFib Time Seen by Provider: 05/24/22 11:53 Source: patient, RN notes reviewed, old records reviewed Mode of arrival: ambulatory Limitations: no limitations - History of Present Illness Initial comments: 67-year-old female presents to the emergency room alert and oriented 4 with complaints of fever and productive cough for 6 days. She states that she has taken multiple coronavirus tests all have been negative. She did have a scheduled appointment with her primary care doctor today prior to this illness. She denies any chest pain at this time. She states that she did have a chest tightness with cough and her primary care doctor did an EKG and found she was in atrial fibrillation and told her to come to the emergency room for evaluation. Patient states that she does have a history of premature atrial complexes, diabetes, hypertension. 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 -: days(s) (6) Severity scale (1-10): 0 Associated Symptoms: cough, fever/chills Treatments Prior to Arrival: other (Seen by primary care doctor) - Related Data Home Medications Medication Instructions Recorded Confirmed Insulin Aspart (For Pump) [NovoLOG 0.01 unit SQ-PUMP CONTINUOUS 02/09/18 05/24/22 (For Pump)] ALPRAZolam [Xanax] 0.125 mg PO HS 05/24/22 05/24/22 Cholecalciferol [Vitamin D3 (25 25 mcg PO DAILY 05/24/22 05/24/22 Mcg = 1000 Iu)] Enalapril [Vasotec] 10 mg PO BID 05/24/22 05/24/22 Insulin Glargine,Hum.rec.anlog 1 dose SQ DIRECTED PRN 05/24/22 05/24/22 [Lantus Solostar Pen] Rivaroxaban [Xarelto] 20 mg PO HS 05/24/22 05/24/22 Allergies Allergy/AdvReac Type Severity Reaction Status Date / Time levofloxacin [From Levaquin] Allergy Rash/Hives Verified 05/24/22 13:42 Penicillins Allergy Rash/Hives Verified 05/24/22 13:42 Sulfa (Sulfonamide Allergy Swelling Verified 05/24/22 13:42 Antibiotics) diphenhydramine HCl AdvReac Itching Verified 05/24/22 13:42 [From Benadryl] morphine AdvReac Itching Verified 05/24/22 13:42 Review of Systems ROS Statement: Those systems with pertinent positive or pertinent negative responses have been documented in the HPI. ROS Other: All systems not noted in ROS Statement are negative. Past Medical History Past Medical History: Diabetes Mellitus, Fibromyalgia, Hypertension Additional Past Medical History / Comment(s): MS. osteoporosis. History of Any Multi-Drug Resistant Organisms: None Reported Past Surgical History: Appendectomy, Breast Surgery, Section Additional Past Surgical History / Comment(s): left rotator cuff. colonoscopy., angioplasty at [facility] in May. Past Psychological History: Anxiety Past Alcohol Use History: None Reported, Occasional Past Drug Use History: None Reported General Exam Limitations: no limitations General appearance: alert, in no apparent distress Head exam: Present: atraumatic, normocephalic Eye exam: Present: normal appearance. Absent: scleral icterus, conjunctival injection ENT exam: Present: normal exam, normal oropharynx, mucous membranes moist Neck exam: Present: normal inspection, full ROM. Absent: tenderness, meningismus Respiratory exam: Present: normal lung sounds bilaterally. Absent: respiratory distress, wheezes, rales, rhonchi, stridor, chest wall tenderness, accessory muscle use Cardiovascular Exam: Present: irregular rhythm, other (PAC ) GI/Abdominal exam: Present: soft. Absent: distended, tenderness, rigid Extremities exam: Present: full ROM, normal capillary refill. Absent: pedal edema, calf tenderness Back exam: Present: normal inspection, full ROM. Absent: tenderness, CVA tenderness (R), CVA tenderness (L), rash noted Neurological exam: Present: alert, oriented X3 Psychiatric exam: Present: normal affect, normal mood Skin exam: Present: warm, dry, normal color. Absent: cyanosis, diaphoretic, petechiae, pallor Course Vital Signs 05/24/22 05/24/22 10:55 14:03 Temperature 98.2 F Pulse Rate 93 75 Respiratory 18 20 Rate Blood Pressure 173/70 164/87 O2 Sat by Pulse 100 99 Oximetry EKG Findings - EKG Results: EKG: sinus rhythm (Ventricular rate of 86, SD interval 0.137, QRS 0.90, QTC 0.[address] elevation) Medical Decision Making - Medical Decision Making Patient presents with 6 days of fever and cough. Sent by her primary care doctor for cardiac evaluation for possible atrial fibrillation. X-ray shows no acute cardiopulmonary process. EKG shows sinus rhythm with PVCs. Troponin is negative at 0.012. Patient has had no chest pain while in the emergency room. Vital signs are stable, she is afebrile and states did not take any Tylenol or Motrin prior to arrival. Lung sounds are clear to auscultation. She states that she does monitor her heart rhythm at home. She is currently taking Eliquis for a pseudoaneurysm right groin. I have a low suspicion that this is cardiac in nature due to patient's reported 6 days of fever and cough. HEART score low. This is likely a viral illness that she is recovering from. With shared decision making, patient states she is more comfortable being discharged home and following up with her doctor. Her blood pressure is elevated at this visit however she states she is taking blood pressure medication. I directed her to discuss her elevated blood pressure today with her primary care doctor. Strict return parameters were discussed with the patient and she was directed to return to emergency room if any new or concerning symptoms. She is agreeable to this plan of care. Case discussed with Dr. Conti. - Lab Data Result diagrams: 05/24/22 12:18 05/24/22 12:18 Lab Results 05/24/22 05/24/22 05/24/22 Range/Units 12:18 12:18 12:18 WBC 6.8 (3.8-10.6) k/uL RBC 3.97 (3.80-5.40) m/uL Hgb 12.0 (11.4-16.0) gm/dL Hct 37.8 (34.0-46.0) % MCV 95.4 (80.0-100.0) fL MCH 30.2 (25.0-35.0) pg MCHC 31.6 (31.0-37.0) g/dL RDW 12.8 (11.5-15.5) % Plt Count 201 (150-450) k/uL MPV 8.2 Neutrophils % 66 % Lymphocytes % 20 % Monocytes % 8 % Eosinophils % 2 % Basophils % 1 % Neutrophils # 4.5 (1.3-7.7) k/uL Lymphocytes # 1.4 (1.0-4.8) k/uL Monocytes # 0.6 (0-1.0) k/uL Eosinophils # 0.2 (0-0.7) k/uL Basophils # 0.0 (0-0.2) k/uL Sodium 137 (137-145) mmol/L Potassium 4.8 (3.5-5.1) mmol/L Chloride 100 (98-107) mmol/L Carbon Dioxide 29 (22-30) mmol/L Anion Gap 8 mmol/L BUN 13 (7-17) mg/dL Creatinine 0.55 (0.52-1.04) mg/dL Est GFR (CKD-EPI)AfAm >90 (>60 ml/min/1.73 sqM) Est GFR (CKD-EPI)NonAf >90 (>60 ml/min/1.73 sqM) Glucose 182 H (74-99) mg/dL Calcium 8.8 (8.4-10.2) mg/dL Magnesium 1.9 (1.6-2.3) mg/dL Total Bilirubin 0.6 (0.2-1.3) mg/dL AST 24 (14-36) U/L ALT 15 (4-34) U/L Alkaline Phosphatase 83 (38-126) U/L Troponin I <0.012 (0.000-0.034) ng/mL Total Protein 7.1 (6.3-8.2) g/dL Albumin 3.8 (3.5-5.0) g/dL Disposition Clinical Impression: Palpitations Disposition: HOME SELF-CARE Condition: Good Instructions (If sedation given, give patient instructions): Heart Palpitations (ED) Additional Instructions: Increase your fluid intake. Return to the emergency room with any new or concerning symptoms including increased chest pain or difficulty breathing. Follow-up with the primary care doctor this week. Is patient prescribed a controlled substance at d/c from ED?: No Referrals: Nohemi Boateng MD [Primary Care Provider] - 1-2 days Time of Disposition: 13:49
[2022-05-24 12:36] LABS: Basophils % (A) 1 %; Eosinophils # (A) 0.2 k/uL (0-0.7); Eosinophils % (A) 2 %; HCT 37.8 % (34.0-46.0); Lymphocytes # (A) 1.4 k/uL (1.0-4.8); Lymphocytes % (A) 20 %; MCH 30.2 pg (25.0-35.0); MCHC 31.6 g/dL (31.0-37.0); MCV 95.4 fL (80.0-100.0); Mean Platelet Volume 8.2; Monocytes # (A) 0.6 k/uL (0-1.0); Monocytes % (A) 8 %; Neutrophils # (A) 4.5 k/uL (1.3-7.7); Neutrophils % (A) 66 %; Platelet Count 201 k/uL (150-450); RBC 3.97 m/uL (3.80-5.40); RDW 12.8 % (11.5-15.5); WBC 6.8 k/uL (3.8-10.6)
--- NOTE | 2022-05-24 12:48 | XR ---
EXAMINATION TYPE: XR chest 2V DATE OF EXAM: 05/24/2022 12:34 PM COMPARISON: Chest radiographs from 02/07/2015 TECHNIQUE: XR chest 2V Frontal and lateral views of the chest. CLINICAL INDICATION:Female, 67 years old with history of dysrhythmia; FINDINGS: Lungs/Pleura: There is no evidence of pleural effusion, focal consolidation, or pneumothorax. Pulmonary vascularity: Unremarkable. Heart/mediastinum: Cardiomediastinal silhouette is prominent in size. Musculoskeletal: No acute osseous pathology. IMPRESSION: No acute cardiopulmonary disease/process.
[2022-05-24 13:09] LABS: ALT 15 U/L (4-34); AST 24 U/L (14-36); African American GFR (CKD) >90 (>60 ml/min/1.73 sqM); Albumin 3.8 g/dL (3.5-5.0); Alkaline Phosphatase 83 U/L (38-126); Anion Gap 8 mmol/L; Blood Urea Nitrogen 13 mg/dL (7-17); Calcium 8.8 mg/dL (8.4-10.2); Carbon Dioxide 29 mmol/L (22-30); Chloride 100 mmol/L (98-107); Glucose 182 mg/dL (74-99); Magnesium 1.9 mg/dL (1.6-2.3); Non-African American GFR(CKD) >90 (>60 ml/min/1.73 sqM); Potassium 4.8 mmol/L (3.5-5.1); Sodium 137 mmol/L (137-145); Total Bilirubin 0.6 mg/dL (0.2-1.3); Total Protein 7.1 g/dL (6.3-8.2)
[2022-05-24 14:06] VITALS: BP 164/87; PULSE 75; RESP 20
== END 2022-05-24 14:06 | disposition home or self-care (01) ==
LOC: EC 10:37
DX: R00.2 Palpitations (principal); E11.9 Type 2 diabetes mellitus without complications; I10 Essential (primary) hypertension; Z88.2 Allergy status to sulfonamides; Z88.8 Allergy status to other drugs, medicaments and biological substances; Z88.0 Allergy status to penicillin; Z88.6 Allergy status to analgesic agent
CPT/HCPCS: 36415; 71046; 80053; 83735; 84484; 85025; 93005; 99285

== ENCOUNTER → 2022-12-21 | Outpatient (CLI) | payer OTHER ==
--- NOTE | 2022-12-21 10:48 | XR ---
EXAMINATION TYPE: XR chest 2V DATE OF EXAM: 12/21/2022 COMPARISON: NONE TECHNIQUE: PA and lateral views submitted. HISTORY: Chest pain FINDINGS: No pleural effusion or pneumothorax. Heart size normal and no overt failure. Osseous structures demo nstrate hypertrophic and degenerative changes of the spine. Biapical pleural thickening. Hyperinflati on suggests COPD. There is a interstitial prominence suggestive of pulmonary fibrosis. There is abnor mal attenuation in the lateral view likely within the left lower lobe. IMPRESSION: 1. Left lower lobe consolidation correlate for pneumonia. Underlying neoplasm is not excluded and con tube knitter follow-up CT scan..
== END | disposition home or self-care (01) ==
LOC: RADXRMAIN 10:27
PROVIDERS: ATTEND Family Medicine
DX: J06.9 Acute upper respiratory infection, unspecified (principal); R07.89 Other chest pain
CPT/HCPCS: 71046

== ENCOUNTER 2023-03-06 20:09 | Emergency (ER) | payer MEDICARE ==
[2023-03-06 20:19] VITALS: TEMP 98
[2023-03-06] MEDS ORDERED: KETOROLAC 15 MG/ML 1 ML VIAL IM STA (20:41)
--- NOTE | 2023-03-06 21:47 | XR ---
EXAMINATION TYPE: XR wrist complete RT DATE OF EXAM: 03/06/2023 9:12 PM INDICATION: Patient age:Female; 67 years old; Reason for study: fall; [facility]. COMPARISON: Right hand radiograph 03/06/2023 TECHNIQUE: 4 views of the right wrist. Frontal, navicular, lateral, and oblique. FINDINGS: No acute osseous pathology, joint dislocation, or joint effusion. No evidence of any soft tissue swelling is seen. Joint space narrowing and osteoarthritic changes of the radiocarpal joint an d first carpometacarpal joint. IMPRESSION: 1. No acute osseous pathology. 2. 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
--- NOTE | 2023-03-06 22:00 | XR ---
EXAMINATION TYPE: XR hand complete RT DATE OF EXAM: 03/06/2023 9:12 PM INDICATION: Patient age:Female; 67 years old; Reason for study: fall; [facility]. COMPARISON: Wrist radiographs 03/06/2023 TECHNIQUE: Frontal, lateral and oblique views of the right hand were obtained. FINDINGS: Diffuse osteopenia. Normal alignment of the visualized joints. No acute osseous pathology is identified. No evidence of soft tissue swelling. Mild to moderate degenerative changes of the dis duncan interphalangeal joints, first carpometacarpal joint and radiocarpal joint. IMPRESSION: 1. No acute osseous pathology. 2. Mild to moderate osteoarthritic changes.
--- NOTE | 2023-03-06 22:08 | ED ---
Fall HPI - General Chief Complaint: Fall Stated Complaint: Fall, R Wrist Injury Time Seen by Provider: 03/06/23 20:41 Source: patient Mode of arrival: ambulatory - History of Present Illness Initial Comments: Patient is a 67-year-old female who presents to the emergency department for right wrist injury. Patient fell yesterday landing on her outstretched right hand. She reports pain in the wrist and back of the hand. She denies pain in the thumb region. Denies numbness and tingling. - Related Data Home Medications Medication Instructions Recorded Confirmed Insulin Aspart (For Pump) [NovoLOG 0.01 unit SQ-PUMP CONTINUOUS 02/09/18 05/24/22 (For Pump)] ALPRAZolam [Xanax] 0.125 mg PO HS 05/24/22 05/24/22 Cholecalciferol [Vitamin D3 (25 25 mcg PO DAILY 05/24/22 05/24/22 Mcg = 1000 Iu)] Enalapril [Vasotec] 10 mg PO BID 05/24/22 05/24/22 Insulin Glargine,Hum.rec.anlog 1 dose SQ DIRECTED PRN 05/24/22 05/24/22 [Lantus Solostar Pen] Rivaroxaban [Xarelto] 20 mg PO HS 05/24/22 05/24/22 Previous Rx's Medication Instructions Recorded Ibuprofen [Motrin] 400 mg PO Q6HR PRN #30 tab 03/06/23 Allergies Allergy/AdvReac Type Severity Reaction Status Date / Time levofloxacin [From Levaquin] Allergy Rash/Hives Verified 05/24/22 13:42 Penicillins Allergy Rash/Hives Verified 05/24/22 13:42 Sulfa (Sulfonamide Allergy Swelling Verified 05/24/22 13:42 Antibiotics) diphenhydramine HCl AdvReac Itching Verified 05/24/22 13:42 [From Benadryl] morphine AdvReac Itching Verified 03/06/23 20:12 Review of Systems ROS Statement: Those systems with pertinent positive or pertinent negative responses have been documented in the HPI. ROS Other: All systems not noted in ROS Statement are negative. Past Medical History Past Medical History: Diabetes Mellitus, Fibromyalgia, Hypertension Additional Past Medical History / Comment(s): MS. osteoporosis. History of Any Multi-Drug Resistant Organisms: None Reported Past Surgical History: Appendectomy, Breast Surgery, Section Additional Past Surgical History / Comment(s): left rotator cuff. colonoscopy., angioplasty at [facility] in May., two stents in left leg Past Psychological History: Anxiety Smoking Status: Former smoker Past Alcohol Use History: Occasional Past Drug Use History: Marijuana General Exam Limitations: no limitations General appearance: alert, in no apparent distress Respiratory exam: Present: normal lung sounds bilaterally. Absent: respiratory distress, wheezes, rales, rhonchi, stridor Cardiovascular Exam: Present: regular rate, normal rhythm, normal heart sounds. Absent: systolic murmur, diastolic murmur, rubs, gallop, clicks Extremities exam: Present: other (mild swelling and ecchymosis to posterior wrist/hand with tenderness. No anatomical snuffbox tenderness. Neurovascularly intact full ROM) Neurological exam: Present: alert, oriented X3, CN II-XII intact Psychiatric exam: Present: normal affect, normal mood Skin exam: Present: warm, dry, intact, normal color. Absent: rash Course Vital Signs 03/06/23 03/06/23 20:12 22:09 Temperature 98.0 F Pulse Rate 97 68 Respiratory 18 16 Rate Blood Pressure 162/81 116/68 O2 Sat by Pulse 99 98 Oximetry Medical Decision Making - Medical Decision Making Was pt. sent in by a medical professional or institution (SALLIE Cheney, DROP HAMMER PILE DRIVER OPERATOR, urgent care, hospital, or senior living...) When possible be specific @ -No Did you speak to anyone other than the patient for history (EMS, parent, family, police, friend...)? What history was obtained from this source @ -No Did you review nursing and triage notes (agree or disagree)? Why? @ -I reviewed and agree with nursing and triage notes Were old charts reviewed (outside hosp., previous admission, EMS record, old EKG, old radiological studies, urgent care reports/EKG's, senior living records)? Report findings @ -No old charts were reviewed Differential Diagnosis (chest pain, altered mental status, abdominal pain women, abdominal pain men, vaginal bleeding, weakness, fever, dyspnea, syncope, headache, dizziness, GI bleed, back pain, seizure, CVA, palpatations, mental health)? @ -Wrist sprain, wrist fracture, contusion, soft tissue injury. This list is not metabolically 7 EKG interpreted by me (3pts min.). @ -As above X-rays interpreted by me (1pt min.). @ -Yes, right wrist and hand x-ray negative for fracture and dislocation CT interpreted by me (1pt min.). @ -None done U/S interpreted by me (1pt. min.). @ -None done What testing was considered but not performed or refused? (CT, X-rays, U/S, labs)? Why? @ -None What meds were considered but not given or refused? Why? @ -None Did you discuss the management of the patient with other professionals (professionals i.e. , PA, DROP HAMMER PILE DRIVER OPERATOR, lab, RT, psych nurse, social media campaign manager, blade sharpener, teacher, privacy officer, heel caser)? Give summary @ -No Was smoking cessation discussed for >3mins.? @ -No Was critical care preformed (if so, how long)? @ -No Were there social determinants of health that impacted care today? How? (Homelessness, low income, unemployed, alcoholism, drug addiction, transportation, low edu. Level, literacy, decrease access to med. care, senior care, rehab)? @ -No Was there de-escalation of care discussed even if they declined (Discuss DNR or withdrawal of care, Hospice)? DNR status @ -No What co-morbidities impacted this encounter? (DM, HTN, Smoking, COPD, CAD, Cancer, CVA, ARF, Chemo, Hep., AIDS, mental health diagnosis, sleep apnea, morbid obesity)? @ -None Was patient admitted / discharged? Hospital course, mention meds given and route, prescriptions, significant lab abnormalities, going to OR and other pertinent info. @ -Discharged. Patient has right wrist sprain no anatomical snuffbox tenderness. Wrist wrapped in jorge bandage pain controlled we discussed symptomatic management in detail. Undiagnosed new problem with uncertain prognosis? @ -No Drug Therapy requiring intensive monitoring for toxicity (Heparin, Nitro, Insulin, Cardizem)? @ -No Were any procedures done? @ -yes, jorge bandage Diagnosis/symptom? @ -right Acute, or Chronic, or Acute on Chronic? @ -right wrist sprain Uncomplicated (without systemic symptoms) or Complicated (systemic symptoms)? @ -uncomplicated Side effects of treatment? @ -No Exacerbation, Progression, or Severe Exacerbation? @ -No Poses a threat to life or bodily function? How? (Chest pain, [place], [place], pneumonia, PE, COPD, DKA, ARF, appy, cholecystitis, CVA, Diverticulitis, Homicidal, Suic idal, threat to staff... and all critical care pts) @ -No Dr. Hernandez is my attending Disposition Clinical Impression: Fall, Left wrist sprain Disposition: HOME SELF-CARE Condition: Good Instructions (If sedation given, give patient instructions): Wrist Sprain (ED) Additional Instructions: Rest and elevate the joint as much as possible. Ice the injury for the next 24- 48 hours. If symptoms continue after, apply warm compress. Take Tylenol or Motrin as needed for pain. Follow-up with primary care provider in 1 to 2 days. Return to the emergency department if you experience new, concerning, or worsening symptoms. Prescriptions: Ibuprofen [Motrin] 400 mg PO Q6HR PRN #30 tab PRN Reason: Pain Is patient prescribed a controlled substance at d/c from ED?: No Referrals: Christopher Dexter MD [Primary Care Provider] - 1-2 days
[2023-03-06 22:10] VITALS: BP 116/68; PULSE 68; RESP 16
== END 2023-03-06 22:13 | disposition home or self-care (01) ==
LOC: EC 20:09
DX: S63.502A Unspecified sprain of left wrist, initial encounter (principal); E11.9 Type 2 diabetes mellitus without complications; I10 Essential (primary) hypertension; F41.9 Anxiety disorder, unspecified; F12.90 Cannabis use, unspecified, uncomplicated; Z87.891 Personal history of nicotine dependence; Z79.4 Long term (current) use of insulin; Z79.899 Other long term (current) drug therapy; Z88.0 Allergy status to penicillin; Z88.2 Allergy status to sulfonamides; Z88.8 Allergy status to other drugs, medicaments and biological substances; W18.30XA Fall on same level, unspecified, initial encounter
CPT/HCPCS: 73110; 73130; 99284; 96372; J1885

== ENCOUNTER 2023-07-15 12:07 | Emergency (ER) | payer MEDICARE ==
--- NOTE | 2023-07-15 13:10 | XR ---
EXAMINATION TYPE: XR chest 2V DATE OF EXAM: 07/15/2023 1:04 PM COMPARISON: Chest radiographs from 12/21/2022 TECHNIQUE: XR chest 2V Frontal and lateral views of the chest. CLINICAL INDICATION:Female, 68 years old with history of pain, sob; FINDINGS: Lungs/Pleura: There is flattening of the diaphragm with increased lucency of the lungs. No evidence o f pneumothorax, pleural effusion or focal consolidation. Biapical pleural thickening. Pulmonary vascularity: Unremarkable. Heart/mediastinum: Cardiomediastinal silhouette is unremarkable. Atherosclerotic calcifications are seen in the aorta. Musculoskeletal: No acute osseous pathology. IMPRESSION: 1. No acute cardiopulmonary disease process. 2. COPD changes.
--- NOTE | 2023-07-15 13:21 | ED ---
General Adult HPI - General Chief complaint: Recheck/Abnormal Lab/Rx Stated complaint: Covid Time Seen by Provider: 07/15/23 12:16 Source: patient, RN notes reviewed Mode of arrival: wheelchair Limitations: no limitations - History of Present Illness Initial comments: 68-year-old female presents emergency Department with chief complaint of cough and cold like symptoms. Patient has positive for: Boom at home. Patient states that she recently had a fall does complain of fractures that she has been evaluated for but states that she has rib pain that she did not have an x-ray for. Denies any difficulty breathing states that she has bodyaches, congestion, chills - Related Data Home Medications Medication Instructions Recorded Confirmed Insulin Aspart (For Pump) [NovoLOG 0.01 unit SQ-PUMP CONTINUOUS 02/09/18 05/24/22 (For Pump)] ALPRAZolam [Xanax] 0.125 mg PO HS 05/24/22 05/24/22 Cholecalciferol [Vitamin D3 (25 25 mcg PO DAILY 05/24/22 05/24/22 Mcg = 1000 Iu)] Enalapril [Vasotec] 10 mg PO BID 05/24/22 05/24/22 Insulin Glargine,Hum.rec.anlog 1 dose SQ DIRECTED PRN 05/24/22 05/24/22 [Lantus Solostar Pen] Rivaroxaban [Xarelto] 20 mg PO HS 05/24/22 05/24/22 Previous Rx's Medication Instructions Recorded Ibuprofen [Motrin] 400 mg PO Q6HR PRN #30 tab 03/06/23 Allergies Allergy/AdvReac Type Severity Reaction Status Date / Time levofloxacin [From Levaquin] Allergy Rash/Hives Verified 07/15/23 12:13 Penicillins Allergy Rash/Hives Verified 07/15/23 12:13 Sulfa (Sulfonamide Allergy Swelling Verified 07/15/23 12:13 Antibiotics) diphenhydramine HCl AdvReac Itching Verified 07/15/23 12:13 [From Benadryl] morphine AdvReac Itching Verified 07/15/23 12:13 Review of Systems ROS Statement: Those systems with pertinent positive or pertinent negative responses have been documented in the HPI. ROS Other: All systems not noted in ROS Statement are negative. Past Medical History Past Medical History: Diabetes Mellitus, Fibromyalgia, Hypertension Additional Past Medical History / Comment(s): MS. osteoporosis. History of Any Multi-Drug Resistant Organisms: None Reported Past Surgical History: Appendectomy, Breast Surgery, Section Additional Past Surgical History / Comment(s): left rotator cuff. colonoscopy., angioplasty at [facility] in May., two stents in left leg Past Psychological History: Anxiety Smoking Status: Former smoker Past Alcohol Use History: Occasional Past Drug Use History: Marijuana General Exam Limitations: no limitations General appearance: alert, in no apparent distress Head exam: Present: atraumatic, normocephalic, normal inspection Eye exam: Present: normal appearance, PERRL, EOMI. Absent: scleral icterus, conjunctival injection, periorbital swelling ENT exam: Present: normal exam, mucous membranes moist Neck exam: Present: normal inspection. Absent: tenderness, meningismus, lymphadenopathy Respiratory exam: Present: chest wall tenderness. Absent: normal lung sounds bilaterally, respiratory distress, wheezes, rales, rhonchi, stridor Cardiovascular Exam: Present: normal rhythm, tachycardia, normal heart sounds. Absent: systolic murmur, diastolic murmur, rubs, gallop, clicks GI/Abdominal exam: Present: soft, normal bowel sounds. Absent: distended, tenderness, guarding, rebound, rigid Course Vital Signs 07/15/23 07/15/23 07/15/23 12:09 12:32 13:39 Temperature 98.1 F 98 F Pulse Rate 115 H 98 Respiratory 18 20 18 Rate Blood Pressure 141/73 138/72 O2 Sat by Pulse 100 100 Oximetry Medical Decision Making - Medical Decision Making Was pt. sent in by a medical professional or institution (, PA, BRILLIANDEER LOOPER, urgent care, hospital, or skilled nursing...) When possible be specific @ -No Did you speak to anyone other than the patient for history (EMS, parent, family, police, friend...)? What history was obtained from this source @ -No Did you review nursing and triage notes (agree or disagree)? Why? @ -I reviewed and agree with nursing and triage notes Were old charts reviewed (outside hosp., previous admission, EMS record, old EKG, old radiological studies, urgent care reports/EKG's, skilled nursing records)? Report findings @ -No old charts were reviewed Differential Diagnosis (chest pain, altered mental status, abdominal pain women, abdominal pain men, vaginal bleeding, weakness, fever, dyspnea, syncope, headache, dizziness, GI bleed, back pain, seizure, CVA, palpatations, mental health, musculoskeletal)? @ -Pneumonia, Covid 19 EKG interpreted by me (3pts min.). @ -None X-rays interpreted by me (1pt min.). @ -Chest x-ray shows no evidence of infiltrate, no acute cardiopulmonary process. CT interpreted by me (1pt min.). @ -None done U/S interpreted by me (1pt. min.). @ -None done What testing was considered but not performed or refused? (CT, X-rays, U/S, labs)? Why? @ -None What meds were considered but not given or refused? Why? @ -None Did you discuss the management of the patient with other professionals (ghada faulkner iterrell Cheney, PA, BRILLIANDEER LOOPER, lab, RT, psych nurse, social science research assistant, splunk consultant, teacher, information assurance officer, piano case and bench assembler)? Give summary @ -No Was smoking cessation discussed for >3mins.? @ -No Was critical care preformed (if so, how long)? @ -No Were there social determinants of health that impacted care today? How? (Homelessness, low income, unemployed, alcoholism, drug addiction, transportation, low edu. Level, literacy, decrease access to med. care, intermediate, rehab)? @ -No Was there de-escalation of care discussed even if they declined (Discuss DNR or withdrawal of care, Hospice)? DNR status @ -No What co-morbidities impacted this encounter? (DM, HTN, Smoking, COPD, CAD, Cancer, CVA, ARF, Chemo, Hep., AIDS, mental health diagnosis, sleep apnea, morbid obesity)? @ -None Was patient admitted / discharged? Hospital course, mention meds given and route, prescriptions, significant lab abnormalities, going to OR and other pertinent info. @ -Discharge patient was requesting infusion patient updated on recommendations of using oral antivirals patient declined secondary to having problems with nausea and medications. Patient will have close recheck return parameters were discussed Undiagnosed new problem with uncertain prognosis? @ -No Drug Therapy requiring intensive monitoring for toxicity (Heparin, Nitro, Insulin, Cardizem)? @ -No Were any procedures done? @ -No Diagnosis/symptom? @ -Covid 19 Acute, or Chronic, or Acute on Chronic? @ -[Acute (without systemic symptoms) or Complicated (systemic symptoms)? @ -Uncomplicated Side effects of treatment? @ -No Exacerbation, Progression, or Severe Exacerbation? @ -No Poses a threat to life or bodily function? How? (Chest pain, [place], [place], pneumonia, PE, COPD, DKA, ARF, appy, cholecystitis, CVA, Diverticulitis, Homicidal, Suicidal, threat to staff... and all critical care pts) @ -No Disposition Clinical Impression: COVID-19 Disposition: HOME SELF-CARE Condition: Stable Instructions (If sedation given, give patient instructions): COVID-19 (Coronavirus Disease 2019) (ED) Additional Instructions: Please return to the Emergency Department if symptoms worsen or any other concerns. Is patient prescribed a controlled substance at d/c from ED?: No Referrals: Christopher Dexter MD [Primary Care Provider] - 1-2 days Time of Disposition: 13:21
[2023-07-15 13:44] VITALS: BP 138/72; PULSE 98; RESP 18; TEMP 98
== END 2023-07-15 13:41 | disposition home or self-care (01) ==
LOC: EC 12:07
DX: U07.1 COVID-19 (principal); E11.9 Type 2 diabetes mellitus without complications; I10 Essential (primary) hypertension; F41.9 Anxiety disorder, unspecified; F12.90 Cannabis use, unspecified, uncomplicated; Z79.4 Long term (current) use of insulin; Z79.01 Long term (current) use of anticoagulants; Z79.899 Other long term (current) drug therapy; Z88.0 Allergy status to penicillin; Z88.1 Allergy status to other antibiotic agents; Z88.2 Allergy status to sulfonamides; Z88.5 Allergy status to narcotic agent; Z88.8 Allergy status to other drugs, medicaments and biological substances; Z87.891 Personal history of nicotine dependence
CPT/HCPCS: 71046; 99283